=== PATIENT | female | born 1995 | race Two or more races ===

== ENCOUNTER 2020-11-04 12:30 | Inpatient (IN) | payer OTHER ==
[~2020-11-04] VITALS: Ht 152.4 cm; Wt 57.6 kg
[2020-11-05] MEDS ORDERED: PRENATAL CAPLE1 EAC1 PO (06:26)
[2020-11-05] MEDS ORDERED: IRON236 MG PO (06:26)
[2020-11-05] MEDS ORDERED: PRENATAL MULTI1 EAC5 (11:08)
[2020-11-05] MEDS ORDERED: FERROUS SULFAT325 MG (11:08)
== END 2020-11-07 14:23 | disposition home or self-care (01) | DRG 807 ==
LOC: OB/GYN 11-05 05:41 → LDR 11-05 05:41 → OB/GYN 11-05 12:30
PROVIDERS: ADMIT Specialist; ATTEND Specialist
PROC: 10E0XZZ Delivery of Products of Conception, External Approach (ICD-10-PCS; principal; 2020-11-05)
PROC: 0UQMXZZ Repair Vulva, External Approach (ICD-10-PCS; 2020-11-05)
PROC: 0W8NXZZ Division of Female Perineum, External Approach (ICD-10-PCS; 2020-11-05)
PROC: 10907ZC Drainage of Amniotic Fluid, Therapeutic from Products of Conception, Via Natural or Artificial Opening (ICD-10-PCS; 2020-11-05)
PROC: 3E033VJ Introduction of Other Hormone into Peripheral Vein, Percutaneous Approach (ICD-10-PCS; 2020-11-05)
PROC: 4A1HXFZ Monitoring of Products of Conception, Cardiac Rhythm, External Approach (ICD-10-PCS; 2020-11-05)
DX: O99.824 Streptococcus B carrier state complicating childbirth (principal); Z37.0 Single live birth; O71.82 Other specified trauma to perineum and vulva; Z3A.38 38 weeks gestation of pregnancy; Z20.822 Contact with and (suspected) exposure to COVID-19

== ENCOUNTER → 2024-10-10 | Emergency (ER) | payer OTHER ==
[~2024-10-10] VITALS: Ht 152.4 cm; Wt 54.0 kg
[~2024-10-10] MED LIST: FERROUS SULFAT325 MG; IRON236 MG PO; PRENATAL CAPLE1 EAC1 PO; PRENATAL MULTI1 EAC5
[2024-10-10 21:36] LABS: BASO % 0.4 % (0.1-1.2); EOS # 0.08 (0.04-0.54); EOS % 0.8 % (0.7-7.0); LYMPH # 2.57 (1.18-3.74); LYMPH % 25.1 % (19.3-53.1); MEAN PLATELET VOLUME 8.90 fl (9.4-12.4); MONO # 0.78 (0.24-0.82); MONO % 7.6 % (4.7-12.5); NEUT # 6.73 (1.56-6.13); NEUT % 65.9 % (34.0-71.1); RED CELL DISTRIBUTION WIDTH 11.5 % (11.6-14.4)
== END | disposition home or self-care (01) ==
LOC: ER 20:56
PROVIDERS: General Practice
DX: O20.8 Other hemorrhage in early pregnancy (principal); Z3A.10 10 weeks gestation of pregnancy; I10 Essential (primary) hypertension; J45.909 Unspecified asthma, uncomplicated